=== PATIENT | female | born 1995 | race Caucasian/White ===

== ENCOUNTER 2020-03-25 13:58 | Emergency (ER) | payer OTHER, BC, SELFPAY ==
[2020-03-25 14:17] VITALS: BP 120/62; PULSE 87; RESP 20; TEMP 36.9; O2SAT 100
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
== END 2020-03-25 14:47 | disposition home or self-care (01) ==
PROVIDERS: Emergency Provider Nurse Practitioner Family
DX: S09.90XA Unspecified injury of head, initial encounter (principal); W20.8XXA Other cause of strike by thrown, projected or falling object, initial encounter
CPT/HCPCS: 99213; G0463